=== PATIENT | female | born 2000 | race Caucasian/White ===

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

== ENCOUNTER 2019-09-01 16:19 | Emergency (ER) | payer BC, OTHER ==
[2019-09-01 16:39] VITALS: BP 113/62
--- NOTE | 2019-09-01 17:05 | UC ---
Respiratory Complaint HPI - HPI Summary HPI Summary: Per manager quality systems: "One week ago symptoms began with head and sinus congestion. Last few days constant cough, productive at times. Whenever she takes a deep breath she coughs. Headache on and off. No chills or fever" -[employer] student -no ST, no ear pain -no sinus pain -no f/c + ex ind asthma hx. using alb w/ soem relief - helps decrease need to cough/ trigger to cough. - History of Current Complaint Chief Complaint: UCRespiratory Stated Complaint: COUGH Time Seen by Provider: 09/01/19 16:41 Hx Last Menstrual Period: 08/10/19 Pain Intensity: 0 - Allergies/Home Medications Allergies/Adverse Reactions: Allergies Allergy/AdvReac Type Severity Reaction Status Date / Time No Known Allergies Allergy Verified 09/01/19 16:30 Home Medications: Home Medications Oral Contraceptive 1 tab PO DAILY 08/19/18 [History] Albuterol HFA INHALER* [Ventolin HFA Inhaler*] 2 puff INH Q4H PRN 09/01/19 [ History Confirmed 09/01/19] Phenylephrine/Dm/Acetaminop/GG [Tylenol Cold-Flu Severe Caplet] 2 each PO PRN [History] methylPREDNISolone [Medrol Dosepak 4 MG*] 4 mg PO DAILY #1 eugenie 09/01/19 [Rx] PMH/Surg Hx/FS Hx/Imm Hx - Surgical History Surgical History: Yes Surgery Procedure, Year, and Place: wisdom teeth. ear tubes - Family History Known Family History: Positive: Non-Contributory - Social History Alcohol Use: Occasionally Substance Use Type: None Smoking Status (MU): Never Smoked Tobacco Review of Systems All Other Systems Reviewed And Are Negative: Yes Constitutional: Positive: Fatigue. Negative: Fever, Chills Skin: Positive: Negative. Negative: Rash Eyes: Positive: Negative ENT: Positive: Nasal Discharge. Negative: Sore Throat, Ear Ache, Sinus Pain/ Tenderness Respiratory: Positive: Cough. Negative: Shortness Of Breath Cardiovascular: Positive: Negative Gastrointestinal: Positive: Negative. Negative: Vomiting, Diarrhea, Nausea Genitourinary: Negative: Dysuria Motor: Positive: Negative Neurovascular: Positive: Negative Musculoskeletal: Positive: Negative Neurological/Mental Status: Positive: Negative Psychological: Positive: Negative Is Patient Immunocompromised?: No Physical Exam Triage Information Reviewed: Yes Appearance: Well-Appearing, No Pain Distress, Well-Nourished - very pleasant. mod cough Vital Signs: Initial Vital Signs Temp 97.1 F 09/01/19 16:32 Pulse 94 09/01/19 16:32 Resp 16 09/01/19 16:32 BP 113/62 09/01/19 16:32 Pulse Ox 99 09/01/19 16:32 Vital Signs Reviewed: Yes Eye Exam: Normal ENT: Positive: Pharyngeal erythema - mild w/ + PND. no exuidtae, TMs normal, Uvula midline. Negative: TM bulging, TM dull, TM red, Tonsillar swelling, Tonsillar exudate, Sinus tenderness Neck exam: Normal Neck: Positive: Supple, Nontender, No Lymphadenopathy Respiratory Exam: Normal Respiratory: Positive: Lungs clear, Decreased breath sounds - mild b/l. Negative: Crackles, Rhonchi, Stridor, Wheezing Cardiovascular Exam: Normal Cardiovascular: Positive: RRR, No Murmur Abdomen Description: Positive: Nontender Musculoskeletal Exam: Normal Neurological Exam: Normal Psychological Exam: Normal Skin Exam: Normal Skin: Negative: Rashes Respiratory Course/Dx - Course Course Of Treatment: Viral asthmatic bronchitis - mild. cont alb. last usee was 7 hrs prior. no e/o vbacterial infection. medrol dose pack. disc risks/SEs. - Differential Dx/Diagnosis Differential Diagnosis/HQI/PQRI: Asthma, Bronchitis, Lower Resp Infection Provider Diagnosis: Bronchitis Discharge ED - Sign-Out/Discharge Documenting (check all that apply): Patient Departure All imaging exams completed and their final reports reviewed: No Studies - Discharge Plan Condition: Stable Disposition: HOME Prescriptions: methylPREDNISolone [Medrol Dosepak 4 MG*] 4 mg PO DAILY #1 eugenie Patient Education Materials: Acute Bronchitis (ED) Referrals: No Primary Care Phys,NOPCP [Primary Care Provider] - Additional Instructions: --We talked about the potential side effects of prednisone including but not limited to increased energy/decreased sleep, stomach upset, irritability, hunger , elevated blood sugars and blood pressures, problems with your adrenal glands and cut off of the blood supply going to your hip. The latter symptoms are more typical of shelter or frequent use of steroids. -Please make a follow up appt w/ the student [facility] at school ~ 5 days. You should be seen sooner if your symptoms worsen or you develop a fever -Continue to use the labuterol every 4-6 hrs until you are feeling better -OTC mucinex or guiafenisin can help as well. - Billing Disposition and Condition Condition: STABLE Disposition: Home
== END 2019-09-01 17:13 | disposition home or self-care (01) ==
LOC: UCCORT 16:19
DX: J40 Bronchitis, not specified as acute or chronic (principal); J39.2 Other diseases of pharynx
CPT/HCPCS: 99212; G0463